=== PATIENT | male | born 1985 | race Caucasian/White ===

== ENCOUNTER 2016-12-03 01:05 | Emergency (ER) | payer SELFPAY ==
--- NOTE | 2016-12-03 02:52 | ED NURSING NOTES ---
Clinical Report - Nurses [facility] [address] [place] [address] 12/03/2016 1:07 [id number] Triage time 01:13. Chief Complaint: INJURY TO LEFT HAND. Alert. No acute distress. --01:15 Reshma Metz R.N. 01:13 12/03/16. BP: 165/89. HR: 127. RR: 15. O2 saturation: 100% on room air. Temp: 98.4 F (oral). Garnica-Blanco pain scale: 2/10. --01:15 Reshma Metz R.N. Weight: 74.8 kg stated. Height/Length: 68 inches Per Patient. BMI: 25.1. --01:14 Reshma Metz R.N. Medications Multivitamins Oral. --01:14 Reshma Metz R.N. Allergies No Known Drug Allergy. --01:14 Reshma Metz R.N. History Arrived by private vehicle. Historian: patient. Primary physician (None). This occurred today (about 1 1/2 hours ago). Occurred at home. He sustained a laceration from a knife. PAST MEDICAL HX: Tetanus status: up-to-date. SOCIAL HX: Current some days smoker (cigarette). Occasional alcohol use. No drug use. --01:15 Reshma Metz R.N. PROBLEMS: no known problems. ADDITIONAL SURGERIES: no known surgeries. PHYSICAL ASSESSMENT Ambulatory to room. GENERAL / NEURO / PSYCH: Oriented X 4. Alert. Appears in no acute distress. EXTREMITIES: Capillary refill is less than 2 seconds in the extremities. Neuro-vascular status intact to the extremity. Left hand: laceration with bleeding. SKIN: Skin is warm and dry. --01:16 Reshma Metz R.N. NURSING PROGRESS NOTES Two patient identifiers checked. Call light placed in reach. Side rails up x 1. Bed placed in lowest position. Brakes of bed on. --01:16 Reshma Metz R.N. Patient ready for evaluation- chart flagged. --01:16 Reshma Metz R.N. Wound cleansed with water and Hibiclens. --01:19 Quin Fontana R.N. Applied dressing consisting of 4x4 gauze, following the application of antibiotic ointment. Secured with tape. --02:58 Quin Fontana R.N. DISPOSITION / DISCHARGE Departure time: 0254. Condition at departure: improved and stable. No learning barriers present. Discharge instructions provided and reviewed with the patient. Reviewed wound care instructions. Patient verbalized understanding. Written instructions provided in Thai. No medication instructions. The patient was discharged home and unaccompanied at time of discharge. He left the Emergency Department ambulatory and via private vehicle. Patient driving. --03:01 Quin Fontana R.N. 02:45 12/03/16. BP: 151/91 taken on the right arm, while lying. HR: 86 (regular and normal rate). RR: 18 (regular and unlabored). O2 saturation: 100% on room air. Temp: deferred. Pain level now: 0/10. --03:01 Quin Fontana R.N. Locked/Released at 12/03/2016 3:01 by Quin Fontana R.N.
--- NOTE | 2016-12-03 02:52 | ED NURSING NOTES ---
Clinical Report - Nurses [facility] [address] [place] [address] 12/03/2016 1:07 [id number] Triage time 01:13. Chief Complaint: INJURY TO LEFT HAND. Alert. No acute distress. --01:15 Reshma Metz R.N. 01:13 12/03/16. BP: 165/89. HR: 127. RR: 15. O2 saturation: 100% on room air. Temp: 98.4 F (oral). Garnica-Blanco pain scale: 2/10. --01:15 Reshma Metz R.N. Weight: 74.8 kg stated. Height/Length: 68 inches Per Patient. BMI: 25.1. --01:14 Reshma Metz R.N. Medications Multivitamins Oral. --01:14 Reshma Metz R.N. Allergies No Known Drug Allergy. --01:14 Reshma Metz R.N. History Arrived by private vehicle. Historian: patient. Primary physician (None). This occurred today (about 1 1/2 hours ago). Occurred at home. He sustained a laceration from a knife. PAST MEDICAL HX: Tetanus status: up-to-date. SOCIAL HX: Current some days smoker (cigarette). Occasional alcohol use. No drug use. --01:15 Reshma Metz R.N. PROBLEMS: no known problems. ADDITIONAL SURGERIES: no known surgeries. PHYSICAL ASSESSMENT Ambulatory to room. GENERAL / NEURO / PSYCH: Oriented X 4. Alert. Appears in no acute distress. EXTREMITIES: Capillary refill is less than 2 seconds in the extremities. Neuro-vascular status intact to the extremity. Left hand: laceration with bleeding. SKIN: Skin is warm and dry. --01:16 Reshma Metz R.N. NURSING PROGRESS NOTES Two patient identifiers checked. Call light placed in reach. Side rails up x 1. Bed placed in lowest position. Brakes of bed on. --01:16 Reshma Metz R.N. Patient ready for evaluation- chart flagged. --01:16 Reshma Metz R.N. Wound cleansed with water and Hibiclens. --01:19 Quin Fontana R.N. Applied dressing consisting of 4x4 gauze, following the application of antibiotic ointment. Secured with tape. --02:58 Quin Fontana R.N. DISPOSITION / DISCHARGE Departure time: 0254. Condition at departure: improved and stable. No learning barriers present. Discharge instructions provided and reviewed with the patient. Reviewed wound care instructions. Patient verbalized understanding. Written instructions provided in Danish. No medication instructions. The patient was discharged home and unaccompanied at time of discharge. He left the Emergency Department ambulatory and via private vehicle. Patient driving. --03:01 Quin Fontana R.N. 02:45 12/03/16. BP: 151/91 taken on the right arm, while lying. HR: 86 (regular and normal rate). RR: 18 (regular and unlabored). O2 saturation: 100% on room air. Temp: deferred. Pain level now: 0/10. --03:01 Quin Fontana R.N. Locked/Released at 12/03/2016 3:01 by Quin Fontana R.N.
--- NOTE | 2016-12-03 02:52 | ED CLINICAL REPORT ---
Clinical Report - Physicians/Mid Levels [facility] [address] [place] [address] 12/03/2016 1:07 Patient: KALPESH DUEÑAS Time Seen: 01:29. Arrived- By private vehicle. Historian- patient. HISTORY OF PRESENT ILLNESS Chief Complaint: Injury to the left hand. The injury happened just prior to arrival about 1 1/2 hours ago. The patient sustained a laceration. Occurred at home. Patient is experiencing mild pain. No other injury. REVIEW OF SYSTEMS The patient sustained a single laceration to the left hand. No swelling, tingling, numbness or weakness. All systems otherwise negative, except as recorded above. PAST HISTORY The patient's dominant hand is the right. Tetanus immunization status is up-to-date. SOCIAL HISTORY Current some days smoker (cigarette). Occasional alcohol use. No drug use. FAMILY HISTORY No significant family medical history. ADDITIONAL NOTES The nursing notes have been reviewed. PHYSICAL EXAM Vital Signs: 12/03/2016 01:13 BP: 165/89. HR: 127. RR: 15. O2 saturation: 100%. Temp: 98.4 F. Garnica-Blanco pain scale: 2/10. Have been reviewed. Head: Head atraumatic. Eyes: Pupils equal, round and reactive to light. ENT: Pharynx normal. Neck: Neck supple. CVS: Normal heart rate and rhythm. Heart sounds normal. Respiratory: No respiratory distress. Breath sounds normal. Abdomen: No visible injury. Soft and nontender. Bowel sounds normal. No organomegaly. No mass. Back: Normal inspection. Skin: Skin warm and dry. Extremities: Dorsal left hand: subcutaneous 1.5 cm laceration. SEE LACERATION PROCEDURE NOTE #1. Neurovascular intact distally. No signs of infection present. Neuro, Vascular and Tendons: Vascular status intact. Sensation intact. Motor intact. Tendon function intact. Neuro: No motor deficit. No sensory deficit. PROGRESS AND PROCEDURES Laceration Repair: Location: left hand. Time-out completed immediately before the procedure. Length: 1.5cm. Complexity: simple (local anesthesia used and sutured). Wound depth/shape- subcutaneous and linear. Wound is clean. Distal neuro/vascular/tendon status normal. Local anesthesia provided using 2% lidocaine no epi. Prepped with Betadine and Hibiclens. Wound explored and cleansed. Closure of skin: interrupted 4-0 nylon (3 sutures). Post-procedure: he is stable and there are no complications. Bleeding is controlled and neuro-vascular status is intact distal to the wound. Dressing applied. Tetanus immunization up-to-date. Course of Care: Patient is stable. Patient/family counseled. Old medical records ordered. Old records unavailable. Disposition: Discharged. Condition: stable. CLINICAL IMPRESSION Single superficial laceration to the left hand. INSTRUCTIONS Protect wound and keep wound area clean. Change dressing twice daily. You may wash wounds briefly, then dry. Apply neosporin twice daily. Sutures/piper should be removed in ten days. Limit use of your hand. Warnings: COMPLICATIONS: Complications from this condition include: possible infection. Future problems may include infection, scarring and pain. INFECTION: Watch for signs of infection (increasing heat and redness, pus-like drainage, swelling, or increased pain). Return or see your doctor if these signs occur. GENERAL WARNINGS: Return or contact your physician immediately if your condition worsens or changes unexpectedly, if not improving as expected, or if other problems arise. Follow-up: Follow up with your doctor in ten days for suture removal. Understanding of the discharge instructions verbalized by patient. (Electronically signed by Moises Orantes MD 12/03/2016 3:03)
--- NOTE | 2016-12-03 02:52 | ED CLINICAL REPORT ---
Clinical Report - Physicians/Mid Levels [facility] [address] [place] [address] 12/03/2016 1:07 Patient: KALPESH DUEÑAS Time Seen: 01:29. Arrived- By private vehicle. Historian- patient. HISTORY OF PRESENT ILLNESS Chief Complaint: Injury to the left hand. The injury happened just prior to arrival about 1 1/2 hours ago. The patient sustained a laceration. Occurred at home. Patient is experiencing mild pain. No other injury. REVIEW OF SYSTEMS The patient sustained a single laceration to the left hand. No swelling, tingling, numbness or weakness. All systems otherwise negative, except as recorded above. PAST HISTORY The patient's dominant hand is the right. Tetanus immunization status is up-to-date. SOCIAL HISTORY Current some days smoker (cigarette). Occasional alcohol use. No drug use. FAMILY HISTORY No significant family medical history. ADDITIONAL NOTES The nursing notes have been reviewed. PHYSICAL EXAM Vital Signs: 12/03/2016 01:13 BP: 165/89. HR: 127. RR: 15. O2 saturation: 100%. Temp: 98.4 F. Garnica-Blacno pain scale: 2/10. Have been reviewed. Head: Head atraumatic. Eyes: Pupils equal, round and reactive to light. ENT: Pharynx normal. Neck: Neck supple. CVS: Normal heart rate and rhythm. Heart sounds normal. Respiratory: No respiratory distress. Breath sounds normal. Abdomen: No visible injury. Soft and nontender. Bowel sounds normal. No organomegaly. No mass. Back: Normal inspection. Skin: Skin warm and dry. Extremities: Dorsal left hand: subcutaneous 1.5 cm laceration. SEE LACERATION PROCEDURE NOTE #1. Neurovascular intact distally. No signs of infection present. Neuro, Vascular and Tendons: Vascular status intact. Sensation intact. Motor intact. Tendon function intact. Neuro: No motor deficit. No sensory deficit. PROGRESS AND PROCEDURES Laceration Repair: Location: left hand. Time-out completed immediately before the procedure. Length: 1.5cm. Complexity: simple (local anesthesia used and sutured). Wound depth/shape- subcutaneous and linear. Wound is clean. Distal neuro/vascular/tendon status normal. Local anesthesia provided using 2% lidocaine no epi. Prepped with Betadine and Hibiclens. Wound explored and cleansed. Closure of skin: interrupted 4-0 nylon (3 sutures). Post-procedure: he is stable and there are no complications. Bleeding is controlled and neuro-vascular status is intact distal to the wound. Dressing applied. Tetanus immunization up-to-date. Course of Care: Patient is stable. Patient/family counseled. Old medical records ordered. Old records unavailable. Disposition: Discharged. Condition: stable. CLINICAL IMPRESSION Single superficial laceration to the left hand. INSTRUCTIONS Protect wound and keep wound area clean. Change dressing twice daily. You may wash wounds briefly, then dry. Apply neosporin twice daily. Sutures/piper should be removed in ten days. Limit use of your hand. Warnings: COMPLICATIONS: Complications from this condition include: possible infection. Future problems may include infection, scarring and pain. INFECTION: Watch for signs of infection (increasing heat and redness, pus-like drainage, swelling, or increased pain). Return or see your doctor if these signs occur. GENERAL WARNINGS: Return or contact your physician immediately if your condition worsens or changes unexpectedly, if not improving as expected, or if other problems arise. Follow-up: Follow up with your doctor in ten days for suture removal. Understanding of the discharge instructions verbalized by patient. (Electronically signed by Moises Orantes MD 12/03/2016 3:03)
--- NOTE | 2016-12-03 03:03 | ED MED RECONCILIATION SUMMARY ---
Patient: KALPESH DUEÑAS Medication Reconciliation Report [facility] VisitID: [id number] [address] [place] [address] 31y, M Registration Date/Time: 12/03/2016 Weight: 74.8 kg Height/Length: 68 in. BMI: 25.1 ALLERGIES: No Known Drug Allergy The patient's Home Medications are listed below: THE FOLLOWING MEDICATIONS NEED TO BE RECONCILED: Multivitamins Oral The source(s) of the original Home Medication information: Not obtained. The following Medications were given to the patient in the Emergency Department: None. The following Medications were prescribed to the patient: None.
--- NOTE | 2016-12-03 03:03 | ED MAR SUMMARY ---
..... Medication Administration Record [facility] [address], [place] [id number] Patient: KALPESH DUEÑAS Visit ID: [id number] 31y, M Weight: 74.8 kg Height/Length: 68 in BMI: 25.1 ALLERGIES: No Known Drug Allergy
--- NOTE | 2016-12-03 03:03 | ED DISCHARGE INSTRUCTIONS ---
Patient: KALPESH DUEÑAS General Instructions [facility] VisitID: [id number] [place] [address] 31y, M Registration Date/Time: 12/03/2016 Single superficial laceration to the left hand. INSTRUCTIONS Protect wound and keep wound area clean. Change dressing twice daily. You may wash wounds briefly, then dry. Apply neosporin twice daily. Sutures/piper should be removed in ten days. Limit use of your hand. Warnings: COMPLICATIONS: Complications from this condition include: possible infection. Future problems may include infection, scarring and pain. INFECTION: Watch for signs of infection (increasing heat and redness, pus-like drainage, swelling, or increased pain). Return or see your doctor if these signs occur. GENERAL WARNINGS: Return or contact your physician immediately if your condition worsens or changes unexpectedly, if not improving as expected, or if other problems arise. Follow-up: Follow up with your doctor in ten days for suture removal. Understanding of the discharge instructions verbalized by patient. ADDITIONAL INFORMATION Laceration, Extremity (Sutures, [place], Or Tape) A laceration is a cut through the skin. This will usually require stitches (sutures) or piper if it is deep. Minor cuts may be treated with surgical tape closures. Home care The following guidelines will help you care for your laceration at home: Keep the wound clean and dry. If a bandage was applied and it becomes wet or dirty, replace it. Otherwise, leave it in place for the first 24 hours, then change it once a day or as directed. If stitches or piper were used, clean the wound daily: After removing the bandage, wash the area with soap and water. Use a wet cotton swab to loosen and remove any blood or crust that forms. After cleaning, keep the wound clean and dry. Talk with your doctor before applying any antibiotic ointment to the wound. Reapply the bandage. You may remove the bandage to shower as usual after the first 24 hours, but do not soak the area in water (no swimming) until the stitches or piper are removed. If surgical tape closures were used, keep the area clean and dry. If it becomes wet, blot it dry with a towel. The doctor may prescribe an antibiotic cream or ointment to prevent infection. Do not stop taking this medication until you have finished the prescribed course or the doctor tells you to stop. The doctor may also prescribe medications for pain. Follow the doctors instructions for taking these medications. If you have chronic liver or kidney disease or ever had a stomach ulcer or GI bleeding, talk with your doctor before using these medicines. Follow-up care Follow up with your health care provider. Most skin wounds heal within ten days. However, an infection may sometimes occur despite proper treatment. Therefore, check the wound daily for the signs of infection listed below. Stitches and piper should be removed within 714 days. If surgical tape closures were used, you may remove them after 10 days, if they have not fallen off by then. Notify your doctor if you notice persistent numbness or weakness in the injured extremity. (Note:A radiologist will review any X-rays that were taken. We will notify you of any new findings that may affect your care.) When to seek medical care Get prompt medical attention if any of these occur: Increasing pain in the wound Redness, swelling, or pus coming from the wound Fever of 100.4F (38C) or higher, or as directed by your health care provider If stitches or piper come apart or fall out before your next appointment If the surgical tape closures fall off within seven days, or the wound edges re-open Bleeding not controlled by direct pressure Laceration, Extremity (Sutures, Piper, Or Tape) A laceration is a cut through the skin. This will usually require stitches (sutures) or piper if it is deep. Minor cuts may be treated with surgical tape closures. Home care The following guidelines will help you care for your laceration at home: Keep the wound clean and dry. If a bandage was applied and it becomes wet or dirty, replace it. Otherwise, leave it in place for the first 24 hours, then change it once a day or as directed. If stitches or piper were used, clean the wound daily: After removing the bandage, wash the area with soap and water. Use a wet cotton swab to loosen and remove any blood or crust that forms. After cleaning, keep the wound clean and dry. Talk with your doctor before applying any antibiotic ointment to the wound. Reapply the bandage. You may remove the bandage to shower as usual after the first 24 hours, but do not soak the area in water (no swimming) until the stitches or piper are removed. If surgical tape closures were used, keep the area clean and dry. If it becomes wet, blot it dry with a towel. The doctor may prescribe an antibiotic cream or ointment to prevent infection. Do not stop taking this medication until you have finished the prescribed course or the doctor tells you to stop. The doctor may also prescribe medications for pain. Follow the doctors instructions for taking these medications. If you have chronic liver or kidney disease or ever had a stomach ulcer or GI bleeding, talk with your doctor before using these medicines. Follow-up care Follow up with your health care provider. Most skin wounds heal within ten days. However, an infection may sometimes occur despite proper treatment. Therefore, check the wound daily for the signs of infection listed below. Stitches and piper should be removed within 714 days. If surgical tape closures were used, you may remove them after 10 days, if they have not fallen off by then. Notify your doctor if you notice persistent numbness or weakness in the injured extremity. (Note:A radiologist will review any X-rays that were taken. We will notify you of any new findings that may affect your care.) When to seek medical care Get prompt medical attention if any of these occur: Increasing pain in the wound Redness, swelling, or pus coming from the wound Fever of 100.4F (38C) or higher, or as directed by your health care provider If stitches or piper come apart or fall out before your next appointment If the surgical tape closures fall off within seven days, or the wound edges re-open Bleeding not controlled by direct pressure You have been given the following additional information: Laceration, Extrem (Suture, Staple, Or Tape) Laceration, Extrem (Suture, Staple, Or Tape) Limit use of your hand. (Electronically signed by Moises Orantes MD 12/03/2016 3:03)
--- NOTE | 2016-12-03 03:03 | ED MAR SUMMARY ---
..... Medication Administration Record [facility] [address] [place], [place] [id number] Patient: KALPESH DUEÑAS Visit ID: [id number] 31y, M Weight: 74.8 kg Height/Length: 68 in BMI: 25.1 ALLERGIES: No Known Drug Allergy
--- NOTE | 2016-12-03 03:03 | ED MED RECONCILIATION SUMMARY ---
Patient: KALPESH DUEÑAS Medication Reconciliation Report [facility] VisitID: [id number] [address] [place] [address] 31y, M Registration Date/Time: 12/03/2016 Weight: 74.8 kg Height/Length: 68 in. BMI: 25.1 ALLERGIES: No Known Drug Allergy The patient's Home Medications are listed below: THE FOLLOWING MEDICATIONS NEED TO BE RECONCILED: Multivitamins Oral The source(s) of the original Home Medication information: Not obtained. The following Medications were given to the patient in the Emergency Department: None. The following Medications were prescribed to the patient: None.
== END 2016-12-03 02:54 | disposition home or self-care (01) ==
LOC: ED SRH 01:05
DX: S61.412A Laceration without foreign body of left hand, initial encounter (principal); W26.0XXA Contact with knife, initial encounter; Y92.009 Unspecified place in unspecified non-institutional (private) residence as the place of occurrence of the external cause; F17.210 Nicotine dependence, cigarettes, uncomplicated